=== PATIENT | male | born 1935 | race Caucasian/White ===

== ENCOUNTER → 2016-05-20 14:03 | Emergency (ER) | payer MEDICARE ==
[~2016-05-20 14:03] MED LIST: ASPIR 8181 MG PO; CLARITIN10 MG PO; LEVAQUIN500 MG PO; LEVOTHYROXINE50 MCG PO; MECLIZINE HCL12.5 MG PO; METOPROLOL TART25 MG PO; NITROQUICK0.4 MG SL; OMEPRAZOLE20 MG PO; PRINIVIL10 MG PO; ZYLOPRIM100 MG PO
== END | disposition admitted as inpatient to this hospital (09) ==
LOC: ER 14:03
DX: R55 Syncope and collapse (principal); R51 Headache; I10 Essential (primary) hypertension; I25.10 Atherosclerotic heart disease of native coronary artery without angina pectoris; E78.5 Hyperlipidemia, unspecified; Z86.73 Personal history of transient ischemic attack (TIA), and cerebral infarction without residual deficits; Z79.82 Long term (current) use of aspirin; Z79.899 Other long term (current) drug therapy; Z88.5 Allergy status to narcotic agent
CPT/HCPCS: 36415

== ENCOUNTER 2016-05-20 14:04 | Inpatient (IN) | payer MEDICARE, OTHER ==
[2016-05-21] MEDS ORDERED: ZYLOPRIM100 MG PO (16:06)
[2016-05-21] MEDS ORDERED: OMEPRAZOLE20 MG PO (16:06)
[2016-05-21] MEDS ORDERED: METOPROLOL TART25 MG PO (16:06)
[2016-05-21] MEDS ORDERED: PRINIVIL10 MG PO (16:06)
[2016-05-21] MEDS ORDERED: CLARITIN10 MG PO (16:07)
[2016-05-21] MEDS ORDERED: NITROQUICK0.4 MG SL (16:07)
[2016-05-21] MEDS ORDERED: MECLIZINE HCL12.5 MG PO (16:07)
[2016-05-21] MEDS ORDERED: LEVOTHYROXINE50 MCG PO (16:08)
[2016-05-21] MEDS ORDERED: LEVAQUIN500 MG PO (16:08)
[2016-05-21] MEDS ORDERED: ASPIR 8181 MG PO (16:08)
== END 2016-05-21 15:30 | disposition home or self-care (01) | DRG 312 ==
LOC: ER 14:04 → MED 17:09
PROVIDERS: ADMIT Internal Medicine
DX: I95.1 Orthostatic hypotension (principal); I16.0 Hypertensive urgency; R51 Headache; J32.2 Chronic ethmoidal sinusitis; I25.10 Atherosclerotic heart disease of native coronary artery without angina pectoris; Z95.1 Presence of aortocoronary bypass graft; K21.9 Gastro-esophageal reflux disease without esophagitis; R42 Dizziness and giddiness; Z79.82 Long term (current) use of aspirin; Z79.899 Other long term (current) drug therapy; Z86.73 Personal history of transient ischemic attack (TIA), and cerebral infarction without residual deficits
CPT/HCPCS: 36415; J1650

== ENCOUNTER 2016-11-07 04:57 | Emergency (ER) | payer MEDICARE | END 2016-11-07 07:40 | disposition home or self-care (01) | LOC: ER 04:57 | DX: N20.1 Calculus of ureter (principal); I10 Essential (primary) hypertension; Z95.1 Presence of aortocoronary bypass graft; Z90.49 Acquired absence of other specified parts of digestive tract; Z79.82 Long term (current) use of aspirin; Z79.899 Other long term (current) drug therapy; Z88.5 Allergy status to narcotic agent | CPT/HCPCS: 36415; 96361; 96374; Q9963; Q9967 ==